=== PATIENT | female | born 1985 | race African-American/Black ===

== ENCOUNTER 2017-03-28 02:36 | Emergency (ER) | payer OTHER ==
[2017-03-28] MEDS ORDERED: DEXAMETHASONE SOD PHOSPHATE 10 MG/1 ML VIAL ONE (02:51)
[2017-03-28] MEDS ORDERED: MAGNESIUM SULF 50% (8.12 MEQ/2 ML-1 GM VIAL) ONE (02:52)
[2017-03-28] MEDS ORDERED: ALBUTEROL SO4 2.5/IPRATROPIUM 0.5 INH SOL 3 ML VIAL.NEB. NEB ONE (02:52)
--- NOTE | 2017-03-28 02:52 | PDOC ---
History of Present Illness - General History Source: Patient Exam Limitations: No Limitations - History of Present Illness Initial Comments: 03/28/17 03:00 The patient is a 31 year old female with significant past medical history of asthma (h/o of intubations and hospitalization) and hyperlipidemia who presents to the ED BIBA from home for acute asthma exacerbation prior to arrival. Patient reports she was in her usual state of health when she developed chest tightness and SOB around 1am. States using her inhaler and nebulizer at home with no relief. She contacted the EMS and upon arrival, EMS administered 10 mg decadron, 1 nebulizer, and 2g of magnesium. At time of evaluation, patient states she is feeling better. Admits to taking her antihistamine. States her asthma is easily triggered by seasonal changes. The patient denies fever, chills, diaphoresis, cough, chest pain, and palpitations. The patient denies abdominal pain, nausea, vomiting, and diarrhea. Allergies: penicillins Social History: No alcohol, tobacco, or drug use reported. Past Surgical History: None reported PCP: Dr. Felicity Qureshi <Rylee Miller - Last Filed: 03/28/17 03:00> - General History Source: Patient <Francisco Reece - Last Filed: 03/28/17 03:36> - General Chief Complaint: Shortness of Breath Stated Complaint: DIFFICULTY BREATHING Time Seen by Provider: 03/28/17 02:49 Past History <Rylee Miller - Last Filed: 03/28/17 03:00> - Past Medical History Asthma: Yes Cardiac Disorders: No Diabetes: No HTN: No Hypercholesterolemia: Yes - Immunization History Immunization Up to Date: Yes - Psycho/Social/Smoking Cessation Hx Anxiety: No Suicidal Ideation: No Smoking Status: No Smoking History: Never smoked Have you smoked in the past 12 months: No Number of Cigarettes Smoked Daily: 0 Hx Alcohol Use: No Drug/Substance Use Hx: No Substance Use Type: None <Francisco Reece - Last Filed: 03/28/17 03:36> - Past Medical History Allergies/Adverse Reactions: Allergies Allergy/AdvReac Type Severity Reaction Status Date / Time Penicillins Allergy Verified 03/28/17 02:56 Home Medications: Ambulatory Orders Budesonide/Formeterol Fumarate [SYMBICORT 160/4.5mcg -] 1 inh PO BID 04/17/15 Montelukast Na [Singulair -] 10 mg PO HS 04/17/15 Acetaminophen [Tylenol] 650 mg PO Q4H PRN #20 tablet 01/11/16 Albuterol 0.083% Nebulizer Radha [Ventolin 0.083% Nebulizer Soln -] 1 neb NEB Q6H #30 vial 03/28/17 Albuterol Sulfate Inhaler - [Ventolin HFA Inhaler -] 2 inh IH Q6H #1 inh Loratadine [Claritin -] 10 mg PO DAILY PRN #7 tablet 03/28/17 Prednisone [Deltasone -] 40 mg PO DAILY #10 tablet 03/28/17 Review of Systems - Review of Systems Able to Perform ROS?: Yes Comments:: 03/28/17 03:00 CONSTITUTIONAL: Absent: fever, no chills, no fatigue EYES: Absent: visual changes ENT: Absent: ear pain, no sore throat CARDIOVASCULAR: Absent: chest pain, no palpitations RESPIRATORY: +SOB, chest tightness Absent: cough GI: Absent: abdominal pain, no nausea, no vomiting, no constipation, no diarrhea GENITOURINARY: Absent: dysuria, no frequency, no hematuria MUSCULOSKELETAL: Absent: back pain, no arthralgia, no myalgia SKIN: Absent: rash NEURO: Absent: headache <BharrBlas gonzalezta - Last Filed: 03/28/17 03:00> *Physical Exam - Vital Signs Last Vital Signs Temp Pulse Resp BP Pulse Ox 97.6 F 108 H 20 135/84 99 03/28/17 02:48 03/28/17 02:48 03/28/17 02:48 03/28/17 02:48 03/28/17 02:48 - Physical Exam Comments: 03/28/17 03:01 GENERAL: Well-appearing, well-nourished. No apparent distress. HEENT: Normocephalic, atraumatic. PERRL, EOM intact. CARDIOVASCULAR: Normal S1, S2. Regular rate and rhythm. PULMONARY: No evidence of respiratory distress. No conversational dyspnea. No retractions. Clear to auscultation bilaterally. No wheezing, rales, or rhonchi. ABDOMEN: Soft, non-distended, non-tender. EXTREMITIES: Normal ROM in all four extremities. No gross deformities. SKIN: Warm, dry. No rash NEUROLOGICAL: No focal neurological deficits. <Rylee Miller - Last Filed: 03/28/17 03:00> Medical Decision Making - Medical Decision Making 03/28/17 03:05 Dr. Reece: The scribe's documentation has been prepared under my direction and personally reviewed by me in its entirery. I confirm that the note above accurately reflects all work, treatment, procedures, and medical decision making performed by me. <Francisco Reece - Last Filed: 03/28/17 03:36> *DC/Admit/Observation/Transfer - Attestations Scribe Attestion: 03/28/17 03:01 Documentation prepared by Rylee Miller, acting as medical dir for Francisco Reece MD/DO. <Rylee Miller - Last Filed: 03/28/17 03:00> - Discharge Dispostion Admit: No <Francisco Reece - Last Filed: 03/28/17 03:36> Diagnosis at time of Disposition: Asthma exacerbation - Discharge Dispostion Disposition: HOME Condition at time of disposition: Stable - Referrals Referrals: Felicity Gonzales MD [Primary Care Provider] - - Patient Instructions Printed Discharge Instructions: DI for Asthma -- Adult - Post Discharge Activity Work/School Note: Back to Work
[2017-03-28 02:56] VITALS: BP 135/84; PULSE 108; TEMP 97.6; BMI 30.9
== END 2017-03-28 03:43 | disposition home or self-care (01) ==
LOC: SUPCPDRO 02:36 → JER 02:36
DX: J45.901 Unspecified asthma with (acute) exacerbation (principal)
CPT/HCPCS: 99282-25